=== PATIENT | female | born 1990 ===

== ENCOUNTER 2016-04-23 16:55 | Emergency (ER) | payer SELFPAY ==
--- NOTE | 2016-04-23 18:00 | ER Document Report ---
ED Medical Screen (RME) - General Stated Complaint: PASSING OUT Notes: (twins) syncope 5 times today frequent migraines today with associated nausea, does have a h/o migraines but has been managed with OTC excedrin Pt states that her primary source of hydration is soda and occasionally drinks water. OBGYN: [facility] - Related Data Allergies/Adverse Reactions: No Known Allergies Allergy (Unverified 04/23/16 17:55)
[2016-04-23 18:03] VITALS: BP 101/56
== END 2016-04-23 20:50 | disposition left against medical advice (07) ==
LOC: ER 16:55
DX: Z53.9 Procedure and treatment not carried out, unspecified reason (principal); R55 Syncope and collapse; R11.0 Nausea
CPT/HCPCS: 99281